=== PATIENT | male | born 1970 | race Caucasian/White ===

== ENCOUNTER 2016-07-21 06:50 | Emergency (ER) | payer OTHER ==
--- NOTE | 2016-07-25 16:04 | ER ---
ADMIT: 07/21/2016 RM/LOC: ER [facility] MR#: [id number] [address] [id number] MICHELLE BRAN [address] [place] [address] Emergency Room Report SEX: M AGE: 45 : 1970 DATE: 07/21/2016 ADDENDUM: A 45-year-old white male coming in after hitting his head. He was a little foggy, but he was obviously exhibiting symptoms of a concussion. At this time, CT was negative. Discharged him, head sheet, off work until Sunday, and then recheck. CONDITION ON DISCHARGE: Good. David Tyler MD/ gary JOB #: [id number] CC: David Tyler MD, Attending Physician Edvin Mckay MD, Family Physician
== END 2016-07-21 09:17 | disposition home or self-care (01) ==
LOC: ER 06:50
DX: S06.0X0A Concussion without loss of consciousness, initial encounter (principal); S00.01XA Abrasion of scalp, initial encounter; I10 Essential (primary) hypertension; Z79.82 Long term (current) use of aspirin; V47.9XXA Unspecified car occupant injured in collision with fixed or stationary object in traffic accident, initial encounter